=== PATIENT | female | born 1935 | race Caucasian/White ===

== ENCOUNTER 2017-11-30 08:44 | Inpatient (IN) | payer OTHER ==
[~2017-11-30] VITALS: Ht 162.6 cm; Wt 39.2 kg
--- NOTE | ~2017-11-30 | HC ---
[facility] [place] [address] CONSULTATION Name: ASA AKINS Room #: 360- ADM IN M.R.#: [id number] Admission: 11/30/17 Attend Phys: Traci Terrazas Discharge: Date of : 37 Report #: [id number] THIS REPORT FOR: //name// CC: Negar Shannon MD TYPE OF REPORT: Pulmonary consultation. REFERRING PHYSICIAN: Traci Terrazas M.D. REASON FOR REFERRAL: Acute respiratory failure. HISTORY OF PRESENT ILLNESS: The patient is an 82-year-old white female with long history of COPD and bronchiectasis, who presents to the Emergency Room with progressive dyspnea. A pulmonary consultation was requested. The patient is followed longitudinally by Dr. Umer Shannon. She is known to have bronchiectasis along with severe COPD. Previous spirometry showed FEV1 of 0.56 liters, 33% predicted, FVC measuring 0.89 liters, 37% predicted. Prior sputum culture has grown pseudomonas, though sensitivity was not available. She was initially started on tobramycin and nebulized twice a day. She had her first dose earlier this week. The patient has also been experiencing progressive weight loss over the past 4 years. She states she has lost over 40 pounds. She has trouble with diarrhea. She has had a history of C. difficile colitis. She has been followed by court security officer. There are certain things that she is not able to eat. She has noticed progressive weakening along with dyspnea over the past few months. Yesterday, her dyspnea became more worse where she presented to the Emergency Room. Chest x-ray shows bibasilar interstitial infiltrates appears to be chronic. Otherwise, she denies any fever, night sweats or chills, chest pain or productive cough. The patient does have chronic cough productive of tannish sputum, she coughs up about 2 tablespoons per day. PAST MEDICAL HISTORY: As mentioned above including history of breast carcinoma, gastroesophageal reflux disease, irritable bowel syndrome, osteoporosis and progressive weight loss over the past 4 years. The patient was diagnosed with whooping cough as a child. PAST SURGICAL HISTORY: Include cataract extraction, cholecystectomy, partial [facility] [address] [place] [address] CONSULTATION Name: ASA AKINS Room #: 360-P ADM IN M.R.#: [id number] Admission: 11/30/17 Attend Phys: Traci Terrazas Discharge: Date of : 39 Report #: [id number] mastectomy, lumpectomy and oophorectomy. ALLERGIES: None noted. HOME MEDICATIONS: Include Eliquis, vitamin supplements, denosumab, diltiazem, Breo Ellipta 200/25 mcg one puff once a day, Mucinex, Xopenex nebulized, tobramycin, Protonix and Betapace. FAMILY HISTORY: Notable for neoplasm in the mother and type not specified and neoplasm in father and type not specified. Both parents . SOCIAL HISTORY: The patient has smoked for about 10 years, quit in 1969. She drinks socially. REVIEW OF SYSTEMS: As mentioned above, otherwise 10-point system review negative. PHYSICAL EXAMINATION: GENERAL: She is awake and alert, in mild distress. She appears to be dyspneic. VITAL SIGNS: Temperature is 97.8 degrees Fahrenheit, pulse is 75, respiratory rate is 19, blood pressure 117/69 mmHg and saturation 96%. HEENT: Normocephalic and atraumatic. NECK: Supple. No lymphadenopathy or thyromegaly. CHEST: Breath sounds are fair with reduced air movements. Moderate bilateral crackles and mild expiratory wheezes. CARDIOVASCULAR: Normal S1 and S2. There are no murmur or gallop. There is no JVD. There is no carotid bruit. Pulses are 2+/4+ bilaterally. ABDOMEN: Soft and nontender. No organomegaly or masses felt. GENITOURINARY: Deferred. RECTAL: Deferred. EXTREMITIES: There is no edema, cyanosis or clubbing. MUSCULOSKELETAL: Notable for moderately severe cachexia. RADIOLOGICAL DATA: Chest x-ray again shows moderate bilateral interstitial infiltrates, CT chest performed in October of 2017 was reviewed showing diffuse bilateral varicoid bronchiectasis, predominantly in both of the lower lobes including the right middle lobe. LABORATORY DATA: Sodium 134, potassium 5.0, chloride 99, CO2 33, BUN is 11 and creatinine 0.5. Liver function profile is mildly abnormal. WBC 8600, hemoglobin 15.4 and platelets normal. No evidence of bandemia. Albumin 3.4. IMPRESSION: 1. Progressive dyspnea in this 82-year-old white female. Etiology likely due to exacerbation of chronic obstructive pulmonary disease along with bronchiectasis. [address] [address] CONSULTATION Name: ASA AKINS Room #: 360-P ADM IN M.R.#: [id number] Admission: 11/30/17 Attend Phys: Traci Terrazas Discharge: Date of : 37 Report #: [id number] 2. Acute hypoxic respiratory failure. 3. Severe malnutrition with cachexia. This has been ongoing for the past 4 years. Likely multifactorial and related to gastrointestinal symptoms along with severe pulmonary impairment. 4. History of a breast carcinoma in 1995, status post mastectomy along with radiation therapy. Lymph nodes were negative at that time. 5. Gastroesophageal reflux disease. 6. Irritable bowel syndrome. RECOMMENDATIONS: We would recommend broad-spectrum antibiotics to cover for presumed pseudomonas infection as a recent sputum culture grew Pseudomonas. Sputum culture has been obtained. Corticosteroids and bronchodilators recommended. As an outpatient, nebulized Steve treatment should be continued as she has chronic bronchitis related to her bronchiectasis. We will need to address nutritional status as the patient has been progressively losing weight. This is likely multifactorial including severe pulmonary impairment. Nutritional supplement is recommended. DVT and GI prophylaxis recommended. Thank you for the consultation. By: [id number] Amador Solomon MD /mandy
--- NOTE | ~2017-11-30 | EKG ---
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
--- NOTE | ~2017-11-30 | EKG ---
[address] [employer] [place] [address] ELECTROCARDIOGRAM REPORT Name: ASA AKINS Room #: 360-P ADM IN M.R.#: [id number] Admission: 11/30/17 Attend Phys: Traci Terrazas Discharge: Date of : 37 Report #: [id number] THIS REPORT FOR: //name// [facility] ED Test Date: 2017-11-30 Test Time: 08:58:48 Pat Name: ASA AKINS Department: Room: Gender: F Supervisor Twisting Department: chloe : 1935 Requested By: Yousif Henderson Order Number: [id number] MD: Howie Alonso Measurements Intervals [place] Rate: 75 P: 68 [place]: 140 QRS: -57 QRSD: 89 T: 41 QT: 382 QTc: 427 Interpretive Statements Sinus rhythm Left axis deviation Compared to ECG 07/18/2014 15:12:04 No significant change was found Electronically Signed On 12-01-2017 7:24:46 CDT by Howie Alonso [email or web address] <ELECTRONICALLY SIGNED> By: Howie Alonso MD, [facility] 12/01/17 0724 [id number] Howie Alonso MD, FACC /EPI
--- NOTE | ~2017-11-30 | HC ---
[facility] [address] [place] [address] CONSULTATION Name: ASA AKINS Room #: 360-P [facility] IN M.R.#: [id number] Admission: 11/30/17 Attend Phys: Traci Terrazas Discharge: Date of : 37 Report #: [id number] THIS REPORT FOR: //name// CC: Negar Terrazas DATE OF SERVICE: 12/01/2017 REASON FOR CONSULTATION: I was asked to evaluate concerning pneumonia. HISTORY OF PRESENT ILLNESS: The patient is an 82-year-old with underlying history of COPD and bronchiectasis, longstanding issue for her. She has a fair amount of sputum on a daily basis. She has been treated for bronchiectasis and acute bronchitis frequently. Her most recent sputum culture from 11/15/2017 had revealed Pseudomonas aeruginosa. For this, she was started on aerosolized tobramycin. She just received her outpatient allotment at home. This was started the day before she was admitted. Yesterday, she awoke and was having difficulty breathing. She had some headache associated with this and was taken to the Emergency Room. She was started on IV antibiotics and IV fluids along with oxygen replacement. Feels better today. Has had much less sputum production today than her normal. No fever, chills or sweats. No pleuritic chest pain. No hemoptysis. She does have intermittent episodes of diarrhea that is controlled with cholestyramine. No nausea or vomiting. She has gastroesophageal reflux, which has been under reasonable control. No tuberculosis history. No travel. IMMUNIZATIONS: Up-to-date. She is a past smoker. ALLERGIES: None. MEDICATIONS: As noted on her MAR including Eliquis, denosumab, diltiazem, Breo, Mucinex, Xopenex, Protonix, Betapace, vancomycin, Zosyn, gentamicin, Solu-Medrol. PAST MEDICAL HISTORY: Breast cancer, gastroesophageal reflux, irritable bowel syndrome, osteoporosis, cataract extraction, hard of hearing, cholecystectomy, partial mastectomy, lumpectomy, oophorectomy. FAMILY HISTORY: Noncontributory. SOCIAL HISTORY: Past smoker. Daily alcohol intake. REVIEW OF SYSTEMS: She has lost approximately 20 pounds over the last several years. No skin lesions. No neurologic complaints. No arthritis symptoms. No genitourinary complaints. [address] [address] CONSULTATION Name: ASA AKINS Room #: 360-P [facility] IN M.R.#: [id number] Admission: 11/30/17 Attend Phys: Traci Terrazas Discharge: Date of : 37 Report #: [id number] PHYSICAL EXAMINATION: VITAL SIGNS: Afebrile, hemodynamically stable. Alert and cooperative, on oxygen at 2 liters. GENERAL: She was very thin. HEENT: Unremarkable. Hard of hearing on the left. NECK: Supple. No adenopathy. LUNGS: Coarse breath sounds in the bases bilaterally without consolidation. HEART: Regular. ABDOMEN: Soft and nontender. EXTREMITIES: Unremarkable. NEUROLOGIC: Nonfocal. LABORATORY STUDIES: Chest x-ray shows interstitial changes. Her previous CAT scan was reviewed, which showed extensive basilar bronchiectasis. Creatinine 0.4, hemoglobin 13.7, white count was 9000. BNP 391. Liver function test normal. Sputum culture is pending. Sputum culture from 11/15/2017 was reviewed. This was sensitive to quinolones, meropenem, aminoglycosides. Zosyn was not tested. IMPRESSION: Exacerbation of bronchiectasis, possible bronchopneumonia with interstitial changes seen on her chest x-ray, has underlying chronic obstructive pulmonary disease, has had a progressive weight loss, has a history of breast cancer. Has a history of irritable bowel syndrome and has been followed up in the GI clinic. RECOMMENDATION: We will continue with IV antibiotic therapy including meropenem, azithromycin along with aerosolized tobramycin. I would avoid systemic aminoglycoside if possible considering the patient already has hearing loss and her advanced age. Would continue with aggressive pulmonary toilet. I would also like to screen for microbacteria as possible cause for her decline. <ELECTRONICALLY SIGNED> By: Adonis Kurtz MD 12/02/17 1136 [id number] Adonis Kurtz MD /nt
[~2017-11-30 08:44] MED LIST: AUGMENTIN 875875 M1 PO; BIAXIN 250MG T250 M1 PO; CITRACAL + D C1 EACH PO; FOSAMAX 70 MG T70 M1 PO; MUCINEX600 MG PO; PROTONIX40 M2 PO; ZPAK PO
[2017-11-30 08:59] VITALS: BP 167/76
[2017-11-30] MEDS ORDERED: CARDIZEM30 MG PO (09:24)
[2017-11-30] MEDS ORDERED: ELIQUIS5 MG PO (09:24)
[2017-11-30 09:25] LABS: BASOPHILS 0.6 % (0.0-2.0); EOSINOPHILS 1.4 % (0.0-3.0); HEMATOCRIT 45.2 % (37.0-47.0); HEMOGLOBIN 15.4 gm/dL (12.0-15.0); LYMPHOCYTES 9.4 % (24.0-44.0); MCH 32.3 pg (26.0-34.0); MCHC 34.1 g/dL (28.0-37.0); MCV 94.7 fL (80.0-100.0); MONOCYTES 7.5 % (1.0-8.0); PLATELET COUNT 247 thou/uL (150-400); POLYS 81.1 % (36.0-66.0); RBC 4.77 mil/uL (4.20-5.00); RDW 12.3 % (10.5-14.5); WBC 8.6 thou/uL (4.0-11.0)
[2017-11-30] MEDS ORDERED: PROLIA60 MG/1 ML SUBQ (09:25)
[2017-11-30] MEDS ORDERED: ERGOCALCIF50000 UNIT PO (09:26)
[2017-11-30] MEDS ORDERED: SORINE 80 MG TA80 M1 PO (09:27)
[2017-11-30 09:35] LABS: ANION GAP 2 mmol/L (7-16); BUN 11 mg/dL (7-18); CHLORIDE 99 mmol/L (98-107); CO2 33 mmol/L (21-32); CREATININE 0.5 mg/dL (0.6-1.0); GLUCOSE 103 mg/dL (74-106)
[2017-11-30 09:37] LABS: SODIUM 134 mmol/L (136-145)
[2017-11-30 09:43] LABS: ALBUMIN 3.4 g/dL (3.4-5.0); SGOT 30 U/L (15-37); SGPT 24 U/L (30-65); TOTAL BILIRUBIN 0.6 mg/dL (<0.1-1.0); TOTAL PROTEIN 8.1 g/dL (6.4-8.2); TROPONIN-I <0.06 ng/mL (<0.06)
[2017-11-30 10:44] VITALS: BP 131/68
[2017-11-30 12:27] VITALS: BP 113/66
[2017-11-30 12:59] VITALS: BP 117/69
[2017-11-30] MEDS ORDERED: CHOLESTYRAMINE P4 GM PO (14:09)
[2017-11-30 20:05] VITALS: BP 94/50
[2017-12-01 00:09] VITALS: BP 92/53
[2017-12-01 04:30] VITALS: BP 100/54
[2017-12-01 05:20] LABS: HEMATOCRIT 39.5 % (37.0-47.0); HEMOGLOBIN 13.7 gm/dL (12.0-15.0); MCH 32.4 pg (26.0-34.0); MCHC 34.8 g/dL (28.0-37.0); MCV 92.9 fL (80.0-100.0); RBC 4.25 mil/uL (4.20-5.00); RDW 11.9 % (10.5-14.5)
[2017-12-01 05:38] LABS: CALCIUM 7.7 mg/dL (8.5-10.1); CREATININE 0.4 mg/dL (0.6-1.0)
[2017-12-01 07:32] VITALS: BP 112/65
[2017-12-01 15:17] VITALS: BP 132/67
[2017-12-01 19:09] VITALS: BP 100/56
[2017-12-01 19:10] LABS: IgA 560 mg/dL (64-422); IgG 977 mg/dL (700-1600); IgM 89 mg/dL (26-217)
[2017-12-02 04:19] VITALS: BP 101/57
[2017-12-02 07:48] VITALS: BP 136/71
[2017-12-02 16:15] VITALS: BP 127/69
[2017-12-02 19:55] VITALS: BP 94/52
[2017-12-02 23:54] VITALS: BP 119/56
[2017-12-03 06:10] VITALS: BP 111/64
[2017-12-03 07:53] VITALS: BP 148/64
[2017-12-03 17:26] VITALS: BP 99/61
[2017-12-03 18:55] VITALS: BP 112/56
[2017-12-04 03:25] VITALS: BP 106/64
[2017-12-04 08:00] VITALS: BP 116/59
[2017-12-04 16:15] VITALS: BP 104/50
[2017-12-04 20:00] VITALS: BP 106/54
[2017-12-05 04:17] VITALS: BP 98/51
[2017-12-05 08:33] VITALS: BP 119/67
[2017-12-05] MEDS ORDERED: TOBRAMYCIN300 MG/7.5 INH (09:35)
[2017-12-05] MEDS ORDERED: CIPRO250 M1 PO (09:35)
[2017-12-05] MEDS ORDERED: ACIDOPHILUS1 EAC4 PO (09:36)
[2017-12-05] MEDS ORDERED: PREDNISONE 20 M20 M1 PO (09:37)
[2017-12-05 14:29] VITALS: BP 119/67
== END 2017-12-05 15:22 | disposition home or self-care (01) | DRG 177 ==
LOC: ER 08:44 → 3W 09:52 → EROBS 09:52 → 3W 12:28 → 4E 12-04 15:11 → ENTRNSPT 12-05 15:15 → EDTRNSPTSTS 12-05 15:18 → 4E 12-05 15:22
PROVIDERS: Emergency Medicine; Internal Medicine Pulmonary Disease
DX: J15.1 Pneumonia due to Pseudomonas (principal); E43 Unspecified severe protein-calorie malnutrition; J96.21 Acute and chronic respiratory failure with hypoxia; J44.1 Chronic obstructive pulmonary disease with (acute) exacerbation; J44.0 Chronic obstructive pulmonary disease with (acute) lower respiratory infection; Z68.1 Body mass index [BMI] 19.9 or less, adult; J20.9 Acute bronchitis, unspecified; E78.5 Hyperlipidemia, unspecified; M62.84 Sarcopenia; I48.91 Unspecified atrial fibrillation; H91.90 Unspecified hearing loss, unspecified ear; K52.9 Noninfective gastroenteritis and colitis, unspecified; E55.9 Vitamin D deficiency, unspecified; M81.0 Age-related osteoporosis without current pathological fracture; K21.9 Gastro-esophageal reflux disease without esophagitis; Z85.3 Personal history of malignant neoplasm of breast; Z92.3 Personal history of irradiation; Z87.891 Personal history of nicotine dependence; Z90.49 Acquired absence of other specified parts of digestive tract; Z90.721 Acquired absence of ovaries, unilateral; Z79.01 Long term (current) use of anticoagulants; Z79.899 Other long term (current) drug therapy
CPT/HCPCS: 10183; 10879

== ENCOUNTER → 2017-12-15 | Outpatient (CLI) | payer OTHER ==
[~2017-12-15] MED LIST changes: +ACIDOPHILUS1 EAC4 PO; +CARDIZEM30 MG PO; +CHOLESTYRAMINE P4 GM PO; +CIPRO250 M1 PO; +ELIQUIS5 MG PO; +ERGOCALCIF50000 UNIT PO; +PREDNISONE 20 M20 M1 PO; +PROLIA60 MG/1 ML SUBQ; +SORINE 80 MG TA80 M1 PO; +TOBRAMYCIN300 MG/7.5 INH
== END ==
LOC: RAD 11:40
DX: J18.9 Pneumonia, unspecified organism (principal)

== ENCOUNTER → 2019-04-11 | Outpatient (CLI) | payer OTHER ==
[~2019-04-11] MED LIST changes: +DILTIAZEM HCL30 MG PO; +ELIQUIS2.5 MG PO; +LEVALBUTER0.63 MG/3 INH; +PANTOPRAZOLE SO40 M1 PO; +SOTALOL 120 MG120 M1 PO
== END ==
LOC: RAD 13:15
DX: J47.9 Bronchiectasis, uncomplicated (principal); R91.8 Other nonspecific abnormal finding of lung field; J90 Pleural effusion, not elsewhere classified

== ENCOUNTER 2019-04-17 14:27 | Inpatient (IN) | payer OTHER ==
[~2019-04-17] VITALS: Ht 154.9 cm; Wt 46.3 kg
[~2019-04-17 14:27] MED LIST changes: -DILTIAZEM HCL30 MG PO; -ELIQUIS2.5 MG PO; -LEVALBUTER0.63 MG/3 INH; -PANTOPRAZOLE SO40 M1 PO; -SOTALOL 120 MG120 M1 PO
[2019-04-17 15:36] VITALS: BP 134/60
[2019-04-17] MEDS ORDERED: DILTIAZEM HCL30 MG PO (16:04)
[2019-04-17] MEDS ORDERED: ELIQUIS2.5 MG PO (16:04)
[2019-04-17] MEDS ORDERED: SOTALOL 120 MG120 M1 PO (16:06)
[2019-04-17] MEDS ORDERED: LEVALBUTER0.63 MG/3 INH (16:06)
[2019-04-17] MEDS ORDERED: PANTOPRAZOLE SO40 M1 PO (16:07)
[2019-04-17 16:49] LABS: ABSOLUTE NEUTROPHILS 9.8 thou/uL (1.4-8.2); BASOPHILS 0.3 % (0.0-2.0); EOSINOPHILS 0.3 % (0.0-3.0); HEMATOCRIT 41.9 % (37.0-47.0); HEMOGLOBIN 14.2 gm/dL (12.0-15.0); LYMPHOCYTES 5.1 % (24.0-44.0); MCH 32.1 pg (26.0-34.0); MCV 94.4 fL (80.0-100.0); MONOCYTES 7.8 % (1.0-8.0); PLATELET COUNT 325 thou/uL (150-400); POLYS 86.5 % (36.0-66.0); RBC 4.44 mil/uL (4.20-5.00); RDW 12.4 % (10.5-14.5); WBC 11.3 thou/uL (4.0-11.0)
[2019-04-17 17:04] LABS: ALBUMIN 2.7 g/dL (3.4-5.0); CREATININE 0.3 mg/dL (0.6-1.0); MAGNESIUM 1.7 mg/dL (1.8-2.4); POTASSIUM 4.1 mmol/L (3.5-5.1); TOTAL BILIRUBIN 0.5 mg/dL (<0.1-1.0); TOTAL PROTEIN 7.2 g/dL (6.4-8.2)
[2019-04-17 17:09] LABS: URINE BILIRUBIN NEGATIVE (Negative); URINE BLOOD NEGATIVE (Negative); URINE CLARITY CLEAR; URINE COLOR YELLOW; URINE GLUCOSE-RANDOM* NEGATIVE (Negative); URINE KETONES NEGATIVE (Negative); URINE LEUKOCYTES-REFLEX NEGATIVE (Negative); URINE NITRITE-REFLEX NEGATIVE (Negative); URINE PROTEIN (DIPSTICK) NEGATIVE (Negative); URINE UROBILINOGEN 0.2 E.U./dl (0.2-1.0)
--- NOTE | 2019-04-17 18:22 | NUR ---
PT WAS ADMITTED TO ROOM [address] BROWN'S OFFICE. PT WAS PLACED ON 2L NC SPO2 WAS 90% ON RA. DR ALLEN AND DIRECTOR OF RESOURCE DEVELOPMENT UP TO VISIT PT. PIV PLACED BY VASCULAR ACCESS TEAM.
[2019-04-17 19:56] VITALS: BP 131/70
[2019-04-17 23:32] VITALS: BP 97/58
[2019-04-18 03:50] VITALS: BP 98/58
--- NOTE | 2019-04-18 04:07 | NUR ---
Pt. refused duoneb stating it makes her very jittery ad would prefer xopenex. AOC OPERATIONS INTELLIGENCE CHIEF notified and order received. Afebrile.Flu swab sent per order. IV fluids and IV ABT started last night. Up with assist to commode x1. SCD's on for DVT prophylaxis. Bed alarm on for safety.
[2019-04-18 07:41] VITALS: BP 108/52
[2019-04-18 11:41] VITALS: BP 91/48
--- NOTE | 2019-04-18 13:31 | NUR ---
INITIAL ASSESSMENT: SW reviewed chart and spoke with nursing and attending physician. 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 SW met with pt at bedside. Introduced role of SW. Pt is alert/orientated x 4. Pt reports she lives at home with her spouse. Pt states she is normally on nocturnal O2. Pt's O2 provided by [employer]. Pt does not use any DME for ambulation. Pt states she takes care of her spouse. Pt's children are involved and supportive. Pt has multiple steps in the home. Pt states she is able to navigate the stairs. No hx of services or post-acute placement. 5N to evaluate pt for possible admission to inpt acute rehab. Pt's PCP is Dr. Negar Odom. SW is following to assist as needed with discharge planning.
[2019-04-18 16:16] VITALS: BP 89/50
[2019-04-18 19:38] VITALS: BP 99/51
[2019-04-19] VITALS (7 sets, daily range): BP systolic 92–102; BP diastolic 50–59
--- NOTE | 2019-04-19 04:23 | NUR ---
Patient making slow progress towards outcome goals. Oxygenation optimal with 2L/NC. High fall risks, fall precautions in place. Uses call light appropriately for needs. Cardizem held for low SBP, prior to Sotalol parameters. Vital signs and rhythm stable.
[2019-04-19 05:31] LABS: ABSOLUTE NEUTROPHILS 16.3 thou/uL (1.4-8.2); BASOPHILS 0.2 % (0.0-2.0); HEMATOCRIT 41.9 % (37.0-47.0); HEMOGLOBIN 13.8 gm/dL (12.0-15.0); LYMPHOCYTES 1.7 % (24.0-44.0); MCH 31.8 pg (26.0-34.0); MCHC 32.9 g/dL (28.0-37.0); MCV 96.6 fL (80.0-100.0); MONOCYTES 2.2 % (1.0-8.0); PLATELET COUNT 368 thou/uL (150-400); POLYS 95.9 % (36.0-66.0); RBC 4.34 mil/uL (4.20-5.00); RDW 12.5 % (10.5-14.5)
[2019-04-19 06:09] LABS: ALBUMIN 2.2 g/dL (3.4-5.0); CALCIUM 8.6 mg/dL (8.5-10.1); CREATININE 0.5 mg/dL (0.6-1.0); POTASSIUM 4.9 mmol/L (3.5-5.1); TOTAL BILIRUBIN 0.3 mg/dL (<0.1-1.0); TOTAL PROTEIN 6.5 g/dL (6.4-8.2)
--- NOTE | 2019-04-19 14:30 | NUR ---
SW reviewed chart and spoke with nursing and attending physician. Pt is progressing towards goals for discharge. Pt may be ready for discharge home over the weekend. Recommendation made for pt to go home with HH. YANNI met with pt at bedside. Pt requested SW to come back at a later time, as she was on the phone. YANNI is following to assist as needed with discharge planning.
--- NOTE | 2019-04-19 19:50 | NUR ---
pt is A&OX3, PT is continuing IV abx and o2 2L/MIN/NC, PT still has some coughing , pt 's vs and o2sat are stable, pt denies pain and sob at day shift.
[2019-04-19 22:05] LABS: CALCIUM 8.7 mg/dL (8.5-10.1); CREATININE 0.5 mg/dL (0.6-1.0); POTASSIUM 4.6 mmol/L (3.5-5.1)
--- NOTE | 2019-04-20 02:55 | NUR ---
ASSUMED PATIENT CARE AT 1845. VITAL SIGNS STABLE WITH PATIENT HAVING NO COMPLAINTS OF PAIN OR NAUSEA. PATIENT IS FULLY ORIENTED BUT ANXIOUS. SHE IS ABLE TO CALL APPROPRIATELY FOR NEEDS. PATIENT IS HIGHLY UPSET DUE TO BEING TRANSFERRED FROM ROOM CLOSE TO NURSING STATION FOR UNIT NEEDS. NURSE AND FELLOW STAFF HAVE TRIED TO SPEND TIME ALLEVIATING CONCERNS AND TRYING TO RECOVER SITUATION TO MINIMAL SUCCESS. PATIENT DID ASK TO SPEAK TO PARTNERSHIP MARKETING MANAGER REGARDING HER DISSATISFACTION. BREATHING STABLE ON TWO LITERS NASAL CANNULA EVIDENCED BY ASSESSMENT AND SPOT OXYGENATION CHECKS. UP MULTIPLE TIMES TO BATHROOM WITH ASSISTANCE INCIDENT FREE. CONTINUE PLAN OF CARE.
[2019-04-20 04:01] LABS: ABSOLUTE NEUTROPHILS 14.1 thou/uL (1.4-8.2); BASOPHILS 1.5 % (0.0-2.0); HEMATOCRIT 41.1 % (37.0-47.0); HEMOGLOBIN 13.7 gm/dL (12.0-15.0); LYMPHOCYTES 1.7 % (24.0-44.0); MCH 32.1 pg (26.0-34.0); MCHC 33.4 g/dL (28.0-37.0); MCV 95.9 fL (80.0-100.0); MONOCYTES 2.6 % (1.0-8.0); PLATELET COUNT 337 thou/uL (150-400); POLYS 94.2 % (36.0-66.0); RBC 4.28 mil/uL (4.20-5.00); RDW 12.3 % (10.5-14.5); WBC 14.9 thou/uL (4.0-11.0)
[2019-04-20 04:21] LABS: ALBUMIN 2.2 g/dL (3.4-5.0); CALCIUM 8.4 mg/dL (8.5-10.1); CREATININE 0.5 mg/dL (0.6-1.0); POTASSIUM 4.5 mmol/L (3.5-5.1); TOTAL BILIRUBIN 0.3 mg/dL (<0.1-1.0); TOTAL PROTEIN 6.3 g/dL (6.4-8.2)
[2019-04-20 05:02] LABS: BE(vivo) 6.4 mmol/L (-2 to +3); HCO3 32.2 mmol/L (22.0-26.0); PCO2 50.4 mmHg (35.0-45.0); PO2 114.9 mmHg (80.0-100.0); pH 7.423 (7.360-7.450); sO2 98.2 % (92.0-98.0)
--- NOTE | 2019-04-20 05:08 | NUR ---
BLOOD CULTURE GRAM + COCCI REPORTED TO EB COTA SHEETER OPERATOR NO OREDERS RECIEVED AT THIS TIME.
[2019-04-20 07:09] VITALS: BP 136/76
[2019-04-20 15:24] VITALS: BP 93/50
--- NOTE | 2019-04-20 16:35 | NUR ---
Assumed care approx. 0700 this AM. Pt wearing 2LNC all shift and tolerating well. Pt up to chair and bathroom throughout the shift. Pt taken for chest x-ray this morning. RT working with patient to cough up sputum. TB test administered on right forearm. Pts daughter Meaghan from [place] updated on the phone; Pts daughter was told about possible bronchoscopy procedure and what it entails as it is possibly going to happen Monday or Monday per Dr. Last. Pts daughter very thankful for the update; all questions and concerns addressed. Pt hasn't had much decline or progression toward plan of care as doctors are still finding the best treatment for the patient at this time.
[2019-04-20 19:02] LABS: INR 1.1; PROTIME 11.5 Seconds (9.3-11.4)
[2019-04-20 20:00] VITALS: BP 117/68
[2019-04-20 23:20] VITALS: BP 121/70
[2019-04-21] VITALS (9 sets, daily range): BP systolic 91–143; BP diastolic 48–74
[2019-04-21 04:45] LABS: ABSOLUTE NEUTROPHILS 11.3 thou/uL (1.4-8.2); BASOPHILS 0.1 % (0.0-2.0); EOSINOPHILS 0.1 % (0.0-3.0); HEMATOCRIT 47.2 % (37.0-47.0); HEMOGLOBIN 15.4 gm/dL (12.0-15.0); LYMPHOCYTES 3.9 % (24.0-44.0); MCH 31.9 pg (26.0-34.0); MCHC 32.6 g/dL (28.0-37.0); MCV 97.7 fL (80.0-100.0); MONOCYTES 3.7 % (1.0-8.0); PLATELET COUNT 302 thou/uL (150-400); POLYS 92.2 % (36.0-66.0); RBC 4.83 mil/uL (4.20-5.00); RDW 12.6 % (10.5-14.5); WBC 12.3 thou/uL (4.0-11.0)
[2019-04-21 04:55] LABS: ALBUMIN 2.2 g/dL (3.4-5.0); CREATININE 0.4 mg/dL (0.6-1.0); POTASSIUM 4.6 mmol/L (3.5-5.1); TOTAL BILIRUBIN 0.3 mg/dL (<0.1-1.0); TOTAL PROTEIN 6.1 g/dL (6.4-8.2)
--- NOTE | 2019-04-21 07:55 | NUR ---
progress pt a/o x4 anxious at times. up with 1 gb and walker gait steady. ivf's infusing as ordered heparin gtt initiated infusing at 5.5 units per kg per hour PT drawn order entered by Garrick HOUSER for am 6 hour check. denies pain. lngs crackles noted in mid to upper freeman and diminished in both bases has a very weak non productive cough, wearing 2 liters of o2 via nc continuously. 2 liters at hs at home. RT tx's continue awaiting sputum sample to send for culture. imaging shows bilateral pleural effusion with left side stable and increasing effusion to right, tentative plan to have a bronchoscopy and possible thorancentesis. iv in right forearm tender and oozing a small amount of blood after hep gtt started, refused to allow me to start another iv for antibiotics stated only would let iv therapy start one as she feels she is a hard stick. up with 1 walker and sba.
[2019-04-21 08:07] LABS: INR 1.1; PROTIME 11.5 Seconds (9.3-11.4)
--- NOTE | 2019-04-21 12:19 | NUR ---
PT BROUGHT TO ICU FROM 3W FOR BRONCH AT 1145. DR THURSTON AND RT AMY AT BEDSIDE. PROPOFOL GTT AND IV PUSH FENT X2 GIVEN. PT ON BIPAP, WILL TX BACK TO 3W WHEN AWAKE.
[2019-04-21 16:19] LABS: CLARITY CLOUDY; COLOR AMBER; SOURCE BAL; TOTAL VOLUME 40 mL
[2019-04-21 16:33] LABS: BF NUCLEATED CELLS 776; BF RBC 2916
--- NOTE | 2019-04-21 16:51 | NUR ---
ASSUMED CARE OF PT AT 0700. PT ALERT AND ORIENTED, SOMEWHAT ANXIOUS, VOICING MANY CONCERNS AND QUESTIONS. BRONCHOSCOPY PERFORMED TODAY; LAVAGED AND BRONCHIAL FLUSHED WITH SIGNIFICANT SECRETIONS MOBILIZATION. IV ABX INFUSING. HEPARIN TITATRED PER PROTOCOL. NEW IV PLACED FOR MULTIPLE IV ABX. UP W/ 1 ASSIST. SOCIALIZING WITH FAMILY THROUGHOUT AFTERNOON. PT PROGRESSING TOWARD POC GOALS.
[2019-04-21 17:04] LABS: BF MACROPHAGE 3; BF NEUTROPHILS 94
[2019-04-22 03:39] VITALS: BP 106/56
--- NOTE | 2019-04-22 04:32 | NUR ---
Pt. very anxious at beginning of shift and has several questions and concerns that has been addressed. Reassurance given to pt. Denies being in pain though she stated she gets uncomfortable at times. O2 at 2L/NC and verbalized shortness of breath with exertion. Up with assist to bathroom and voiding per toilet. Cont. on heparin gtt. infusion with no bleeding noted. Titrated per protocol. Will continue to monitor.
[2019-04-22 07:26] VITALS: BP 150/81
[2019-04-22 11:07] VITALS: BP 114/71
--- NOTE | 2019-04-22 12:58 | NUR ---
YANNI reviewed chart and spoke with nursing and attending physician. Pt had a bronch yesterday and will have a thoracentesis today. Plan is for pt to discharge home with [facility] when medically stable. [facility] liaison updated. YANNI also discussed case with rehab assistant. Pt may be too high level for admission to . YANNI is following to assist as needed with discharge planning.
[2019-04-22 15:20] VITALS: BP 111/71
[2019-04-22 19:47] VITALS: BP 138/66
--- NOTE | 2019-04-23 03:05 | NUR ---
UPON ARRIVAL TO SHIFT PT RESTING IN BED TALKING ON PHONE WITH FAMILY. O2 PER NC. TELE INTACT. HEPARIN INTACT, TWO IVS RUE. RECEIVING SCHEDULED IV ANTIBIOTICS. PT ASKED NURSE WHY SHE WAS ON HEPARIN, EXPLAINATION PROVIDED RE NEED FOR SHORTER HALF LIFE OF ANTICOAGULANT FOR PROCEDURES. PER REPORT SHE FREQUENTLY ASKS FOR THIS EXPLAINATION. PT STATED SHE WISHES TO DISCUSS GOING HOME TOMORROW WITH , SHE IS CONCERNED RE THE CARES HER NEEDS. SBA WITH TRANSFERSS, STEADY GAIT. GOOD EYE CONTACT, SMILING WITH CONVERSATIONS.
[2019-04-23 03:39] VITALS: BP 102/56
[2019-04-23 06:19] LABS: HEMATOCRIT 41.8 % (37.0-47.0); HEMOGLOBIN 14.1 gm/dL (12.0-15.0); MCH 32.2 pg (26.0-34.0); MCHC 33.7 g/dL (28.0-37.0); MCV 95.6 fL (80.0-100.0); RBC 4.38 mil/uL (4.20-5.00); RDW 12.3 % (10.5-14.5); WBC 9.6 thou/uL (4.0-11.0)
[2019-04-23 07:53] VITALS: BP 128/71
[2019-04-23 12:30] VITALS: BP 123/63
--- NOTE | 2019-04-23 12:40 | NUR ---
MILK TESTER REQUESTED TO REASSESS PATIENT FOR ACUTE REHAB STAY. THICKENER OPERATOR, KIKE KHAN, CONSULTED REGARDING PATIENT'S APPROPRIATENESS FOR 5N. PATIENT IS TOO HIGH FUNCTIONING FOR ACUTE REHAB AND AT THIS TIME THERE ARE NO OPEN BEDS. DIVING INSTRUCTOR INFORMED. THANK YOU FOR THIS REFERRAL.
--- NOTE | 2019-04-23 13:52 | NUR ---
DISCHARGE PLANNING. ANTICIPATED DISCHARGE TO HOME IN 1-2 DAYS WITH [facility]. CLINICAL UPDATES FAXED TO [facility] INTAKE LIAISON. CALL PLACED TO [facility] TO NOTIFY. [facility] TO NOTIFY HH TEAM. WILL FACILITATE PATIENTS HH NEEDS ONCE DC/HH ORDERS RECEIVED. FOLLOWIING.
[2019-04-23 15:55] VITALS: BP 121/67
--- NOTE | 2019-04-23 15:58 | NUR ---
YANNI reviewed chart and spoke with nursing and attending physician. Pt is progressing towards goals for discharge. Discharge home is anticipated in 1-2 days. YANNI met with pt at bedside to provide update. Pt is ready to go home. Pt is agreeable with services through [facility]. Pt's is currently on service with [facility]. Pt asked about additional care when she gets home, as she is her 's primary caregiver. YANNI discussed possible private duty care through [facility]. Pt states that may be possible. YANNI spoke with Dolores at [facility] to provide update. Pt's spouse may qualify for additional hours in the home through the [facility]. He currently has 3 hrs/day M-W-F. Dolores will have the private duty coordinator contact pt to discuss rates for private duty care. YANNI left voice message for pt's dtr-in-law Palmira, to provide update. YANNI is following to assist as needed with discharge planning.
--- NOTE | 2019-04-23 16:16 | NUR ---
AM: Began pt care around 0700. Pt's wuqlxafr-th-uaj at bedside. Pt complains of not being able to shower so bed bath and shampoo cap was provided. Pt was thankful for bath/hair care. Position changed periodically for comfort. Pt expressed concerns about going home and need for help at home since she takes care of her who has dementia. barrow worker was consulted. Pt tolderated breakfast well and ate 80% of it. Pt seen by OT and PT for eval. Pt up to chair for lunch and tolerated ambulating. NOON: Pt tolerated lunch well. Pt still anxiously waiting for Stove Bottom Worker. Physician spoke with pt at bedside. Thoracentesis and chest x-ray ordered. Afternoon: Pt's VS continue to improve over the span of the day. Sdsjniwn-me-gvr no longer here. Pt still waiting for Stove Bottom Worker. Pt seems less anxious now. Will continue to monitor.
[2019-04-23 19:27] VITALS: BP 124/70
--- NOTE | 2019-04-23 20:17 | NUR ---
pt is A&OX3, PT is continuing iv abx and o2 1-2 L/min/nc, pt gets up to walk at hallway and room, pt is continuing heparin iv drip at 14.97units/kg/h, no bleeding s/s at this time, RN has called pulmonary dr about US Thoracentesis 04/24 , telling dr pt is on heparin drip, no new order at this time.
[2019-04-23 22:10] LABS: ADENOVIRUS Negative (Negative); INFLUENZA A Negative (Negative); INFLUENZA B Negative (Negative); METAPNEUMOVIRUS Negative (Negative); PARAINFLUENZA 1 Negative (Negative); PARAINFLUENZA 2 Negative (Negative); PARAINFLUENZA 3 Negative (Negative); RHINOVIRUS Negative (Negative); RSV A Negative (Negative); RSV B Negative (Negative)
[2019-04-24] VITALS (8 sets, daily range): BP systolic 102–139; BP diastolic 56–78
--- NOTE | 2019-04-24 02:12 | NUR ---
PT RESTING IN BED UPON ARRIVAL TO SHIFT. HEPARIN AND ANTIBIOTICS CONTINUE INFUSING. O2 PER NC DECREASED TO 1L. PT DID AMBULATE IN [place] X 1 THIS EVENING. LUNGS WITH CRACKLES. PT STATED THIS EVENING I AM ON THIS IV BECAUSE I CAN NOT TAKE MY ELIQUIS RIGHT NOW. PT WILL HAVE US AND THORACENTISIS TOMORROW. PT DID NOT VERBALIZE ANY ANXIETY OR CONCERNS RELATED TO HER BEING AT HOME WITH SON CAREGIVER.
[2019-04-24 11:11] LABS: ANA INTERPRETATION Negative (Negative); ANTI-DNA SCREEN <1 IU/mL (0-9); ANTI-RNP 0.9 AI (0.0-0.9)
--- NOTE | 2019-04-24 12:09 | NUR ---
YANNI reviewed chart and spoke with nursing and attending physician. Pt to have a thoracentesis today. YANNI met with pt at bedside to discuss discharge. Pt did have a rest/exercise oximetry today and qualifies for home O2. 2L with activity. discharge planner faxed info to [facility]. Portable tank to be delivered to the pt's room this afternoon. Pt agreeable with discharge plan to go home and is hoping to discharge home today. Pt states she spoke with [facility] regarding private duty care in additional to services. YANNI updated Dolores in intake at [facility]. YANNI left voice message for pt's dtr in law, Palmira, to provide update. YANNI is following to assist as needed with discharge planning.
[2019-04-24 14:54] LABS: CLARITY HAZY; COLOR YELLOW; SOURCE THORACENTESIS; TOTAL VOLUME 60 mL
[2019-04-24 14:58] LABS: BF NUCLEATED CELLS 191; BF RBC 196
[2019-04-24 16:28] LABS: BF MACROPHAGE 19; BF NEUTROPHILS 26
[2019-04-24 16:39] LABS: SOURCE THORACENTESIS
--- NOTE | 2019-04-24 19:48 | NUR ---
pt is A&OX3, PT is continuing iv abx , o2 1L/MIN/NC, and PT/OT, pt is tolerated US thoracentesis today, A total of 1000ml of yellow pleural fluia was drained without difficult per report , pt 's vs and o2sat are stable, pt has a good dinner today, pt requests to D/C tomorrow, RN has called pulmonary dr, get order it is ok to D/C tomorrow.pt denies pain and sob.
--- NOTE | 2019-04-24 19:59 | NUR ---
RN has called dr to ask about heparin drip after done thoracentesis, new order received, stop heparin iv drip at 1730pm, restarts eliquis 2.5mg po at 2330pm, no s/s of bleeding at this time.
[2019-04-24 20:06] LABS: ANA INTERPRETATION Negative (())
--- NOTE | 2019-04-25 03:34 | NUR ---
ASSUMED CARE FROM DAY SHIFT PT RESTING IN BED ASSISTED TO BATHROOM GAIT STEADY DENIES SOA WHEN UP, PO MEDICATION , DISCUSSED PLAN OF CARE AND VERBALIZED UNDERSTANDING AND AGREEABLE. FINISH OPENER SHOWS NSR, PT RESTED WELL THROUGHOUT HOURLY ROUNDS, WILL CONTINUE WITH CURRENT PLAN OF CARE.
[2019-04-25 03:40] VITALS: BP 98/59
[2019-04-25 08:09] VITALS: BP 132/73
[2019-04-25 11:53] VITALS: BP 98/60
[2019-04-25 12:53] LABS: CALCIUM 8.5 mg/dL (8.5-10.1); CREATININE 0.4 mg/dL (0.6-1.0); POTASSIUM 4.4 mmol/L (3.5-5.1)
--- NOTE | 2019-04-25 13:07 | PATH ---
[facility] [address] [place] [address] PATHOLOGY RPT PROCEDURE Name: ASA AKINS Room #: 356-P ADM IN M.R.#: [id number] Admission: 04/17/19 Date of : 39 Discharge: Report #: [id number] Path Case #: [id number] Note [facility] Accession Number: [id number] TESTS RESULT FLAG UNITS REF RANGE LAB Clinician Provided Cytology Information No. of containers..01 Other (Miscellaneous) Source: BAL DIAGNOSIS: 02 BAL NEGATIVE FOR MALIGNANT CELLS. NORMAL BRONCHIAL CELLS AND MACROPHAGES ARE PRESENT. PULMONARY MACROPHAGES (DUST CELLS) ARE PRESENT. PROTEINACEOUS MATERIAL IS PRESENT. Pathologist ICD10: 02 J18.9 Signed out by: 02 Rossana Barros MD, Pathologist NPI- [id number] Performed by: Vicente Whiteside, Compliance Review Officer ([facility]) Gross description: 01 10ML, PINK, CLOUDY /LCS 06/04/1840 0000 Local FLAG LEGEND: L-Low Normal,H-High Normal,LL-Alert Low,HH-Alert High <-Panic Low,>-Panic High,A-Abnormal,AA-Critical Abnormal Performed at: 01 [facility] [address] [place] [address] Tello Bentley MD, [address] [address] Rossana Barros MD, Specimen Comment: A courtesy copy of this report has been sent to [phone] Specimen Comment: [id number], Specimen Comment: [id number] Specimen Comment: Report sent to ,DR MURRIETA / DR ALLEN Specimen Comment: A duplicate report has been generated due to demographic updates. Performed at: 01 [facility] [address] [place] [address] PATHOLOGY RPT PROCEDURE Name: ASA AKINS Room #: 356-P ADM IN M.R.#: [id number] Admission: 04/17/19 Date of : 39 Discharge: Report #: [id number] Path Case #: [id number] [address], [place], [place] [id number] MD Tello Bentley MD Phone: [phone]
--- NOTE | 2019-04-25 13:14 | NUR ---
YANNI reviewed chart and spoke with nursing and attending physician. Pt is s/p thoracentesis and has been cleared by pulmonary to go home today. YANNI met with pt at bedside to provide update. Pt is hoping to discharge home today. Pt has portable O2 tank at bedside. HH is in place. Pt states she will have transportation home later today if and when she is discharged. YANNI spoke with Dolores at [facility] to provide update. Awaiting final discharge orders/summary at this time. Will need to be faxed to [facility] when available. YANNI is following to assist as needed with discharge planning. [facility]--
[2019-04-25] MEDS ORDERED: AZITHROMYCIN 2250 MG PO (14:13)
[2019-04-25] MEDS ORDERED: RAYOS5 MG PO (14:13)
[2019-04-25] MEDS ORDERED: CEFUROXIME500 MG PO (14:13)
[2019-04-25 15:40] VITALS: BP 117/65
--- NOTE | 2019-04-25 16:27 | NUR ---
PT IS DISCHARGED. DISHCARGE INSTRUCTIONS GIVEN AND VERBALIZES UNDERSTANDING. MEDICATION SCRIPTS GIVEN TO PT PRIOR TO DISCHARGE. NO CONCERNS OR ISSUES NOTED AT THIS TIME PER NURSING.
--- NOTE | 2019-04-25 17:06 | PATH ---
[facility] [address] [place] [address] PATHOLOGY RPT PROCEDURE Name: ASA AKINS Room #: 356-P DIS IN M.R.#: [id number] Admission: 04/17/19 Date of : 39 Discharge: 04/25/19 Report #: [id number] Path Case #: [id number] Note [facility] Accession Number: [id number] TESTS RESULT FLAG UNITS REF RANGE LAB Clinician Provided Cytology Information No. of containers..01 Other (Miscellaneous) Source: PLEURAL FLUID DIAGNOSIS: 02 PLEURAL FLUID NEGATIVE FOR MALIGNANT CELLS. REACTIVE MESOTHELIAL CELLS ARE PRESENT. THIS INTERPRETATION INCLUDES EVALUATION OF A CELL BLOCK. Pathologist ICD10: 02 J47.9 Signed out by: 02 Rossana Barros MD, Pathologist NPI- [id number] Performed by: Becca Sexton, Creative Services Coordinator ([facility]) Gross description: 01 17 ML, YELLOW, CLEAR /LCS 06/04/1840 0000 Local FLAG LEGEND: L-Low Normal,H-High Normal,LL-Alert Low,HH-Alert High <-Panic Low,>-Panic High,A-Abnormal,AA-Critical Abnormal Performed at: [address] [place] [address] Tello Bentley MD, [address] [address] Rossana Barros MD, Specimen Comment: A courtesy copy of this report has been sent to [phone] Specimen Comment: [id number] Specimen Comment: Report sent to Performed at: [address], [place], [place] [id number] MD Tello Bentley MD Phone: [phone]
[2019-04-25 17:10] LABS: BODY FLUID ALBUMIN 0.8 g/dL (Not Estab.); BODY FLUID AMYLASE 42 U/L (()); BODY FLUID GLUCOSE 114 mg/dL (()); BODY FLUID LDH 37 IU/L (()); BODY FLUID PROTEIN 1.5 g/dL (())
== END 2019-04-25 16:38 | disposition home health service (06) | DRG 177 ==
LOC: TBACV 14:27 → 3W 14:51 → ICU 04-21 11:03 → 3W 04-21 12:50
PROVIDERS: Internal Medicine; Internal Medicine Pulmonary Disease; Nurse Practitioner; Pediatrics; Specialist; ADMIT Hospitalist
PROC: 0B9F8ZX Drainage of Right Lower Lung Lobe, Via Natural or Artificial Opening Endoscopic, Diagnostic (ICD-10-PCS; principal; 2019-04-21)
PROC: 0W993ZZ Drainage of Right Pleural Cavity, Percutaneous Approach (ICD-10-PCS; 2019-04-24)
DX: J15.1 Pneumonia due to Pseudomonas (principal); E43 Unspecified severe protein-calorie malnutrition; J96.21 Acute and chronic respiratory failure with hypoxia; J96.22 Acute and chronic respiratory failure with hypercapnia; J44.1 Chronic obstructive pulmonary disease with (acute) exacerbation; E87.1 Hypo-osmolality and hyponatremia; J91.8 Pleural effusion in other conditions classified elsewhere; J84.9 Interstitial pulmonary disease, unspecified; I48.20 Chronic atrial fibrillation, unspecified; J44.0 Chronic obstructive pulmonary disease with (acute) lower respiratory infection; K21.9 Gastro-esophageal reflux disease without esophagitis; E83.42 Hypomagnesemia; J84.10 Pulmonary fibrosis, unspecified; K58.9 Irritable bowel syndrome, unspecified; F32.9 Major depressive disorder, single episode, unspecified; D72.829 Elevated white blood cell count, unspecified; Z91.011 Allergy to milk products; Z85.3 Personal history of malignant neoplasm of breast; Z92.3 Personal history of irradiation; Z90.49 Acquired absence of other specified parts of digestive tract; Z87.891 Personal history of nicotine dependence; Z79.899 Other long term (current) drug therapy
CPT/HCPCS: 10779; 10879

== ENCOUNTER → 2019-05-16 | Outpatient (CLI) | payer OTHER ==
[~2019-05-16] MED LIST changes: +AZITHROMYCIN 2250 MG PO; +CEFUROXIME500 MG PO; +DILTIAZEM HCL30 MG PO; +ELIQUIS2.5 MG PO; +LEVALBUTER0.63 MG/3 INH; +PANTOPRAZOLE SO40 M1 PO; +RAYOS5 MG PO; +SOTALOL 120 MG120 M1 PO
== END ==
LOC: RAD 09:48
DX: J47.9 Bronchiectasis, uncomplicated (principal); J90 Pleural effusion, not elsewhere classified; J18.9 Pneumonia, unspecified organism

== ENCOUNTER → 2019-11-13 | Outpatient (CLI) | payer OTHER ==
[2019-11-13 16:42] LABS: BE(vivo) -0.2 mmol/L (-2 to +3); HCO3 23.4 mmol/L (22.0-26.0); PCO2 34.5 mmHg (35.0-45.0); PO2 68.2 mmHg (80.0-100.0); sO2 94.5 % (92.0-98.0)
== END ==
LOC: PUL 15:57
PROVIDERS: ATTEND Internal Medicine
DX: J44.9 Chronic obstructive pulmonary disease, unspecified (principal); R06.02 Shortness of breath

== ENCOUNTER → 2021-04-01 | Outpatient (CLI) | payer OTHER | LOC: RAD 11:13 | PROVIDERS: ATTEND Internal Medicine | DX: J18.0 Bronchopneumonia, unspecified organism (principal); J90 Pleural effusion, not elsewhere classified; R06.02 Shortness of breath ==